=== PATIENT | male | born 1950 | race African-American/Black ===

== ENCOUNTER 2019-09-18 16:10 | Emergency (ER) | payer MEDICARE, OTHER ==
[~2019-09-18] VITALS: Ht 177.8 cm; Wt 88.0 kg
[2019-09-18 16:25] VITALS: BP 148/103
[2019-09-18] MEDS ORDERED: TRIA15OI TP (17:15)
--- NOTE | 2019-09-18 17:15 | PHYS DOC ---
Past History Past Medical History: Other Additional Past Medical Histor: CHRONIC PAIN, NEUROPATHY Past Surgical History: Other Additional Past Surgical Histo: RIGHT ABOVE THE KNEE AMPUTATION, LEFT BELOW THE ELBOW AMPUTATION Alcohol Use: None General Adult EDM: Chief Complaint: SKIN PROBLEM HPI: HPI: 69-year-old male presents with rash on the right upper arm and a small area on the lower arm. He has been working outside but he was wearing long sleeves. He is not sure how he came in contact with plant. It is somewhat itchy but not terrible. It is very vesicular. He has no other complaints at this time. He is on lots of chronic pain medication. Review of Systems: Review of Systems: Constitutional: Denies fever or chills Eyes: Denies change in visual acuity HENT: Denies nasal congestion or sore throat Respiratory: Denies cough or shortness of breath Cardiovascular: Denies chest pain or edema GI: Denies abdominal pain, nausea, vomiting, bloody stools or diarrhea : Denies dysuria Musculoskeletal: Denies back pain or joint pain Integument: Rash Neurologic: Denies headache, focal weakness or sensory changes Endocrine: Denies polyuria or polydipsia Lymphatic: Denies swollen glands Psychiatric: Denies depression or anxiety Heart Score: Risk Factors: Risk Factors: DM, Current or recent (<one month) smoker, HTN, HLP, family history of CAD, obesity. Risk Scores: Score 0 - 3: 2.5% MACE over next 6 weeks - Discharge Home Score 4 - 6: 20.3% MACE over next 6 weeks - Admit for Clinical Observation Score 7 - 10: 72.7% MACE over next 6 weeks - Early Invasive Strategies Allergies: Allergies: Allergies Coded Allergies Type Severity Reaction Last Updated Verified No Known Drug Allergies 09/18/19 No Physical Exam: PE: Constitutional: Well developed, well nourished, no acute distress, non-toxic appearance. [] HENT: Normocephalic, atraumatic, bilateral external ears normal, oropharynx moist, no oral exudates, nose normal. [] Eyes: PERRLA, EOMI, conjunctiva normal, no discharge. [] Neck: Normal range of motion, no tenderness, supple, no stridor. [] Cardiovascular:Heart rate regular rhythm, no murmur [] Lungs & Thorax: Bilateral breath sounds clear to auscultation [] Abdomen: Bowel sounds normal, soft, no tenderness, no masses, no pulsatile masses. [] Skin: Vesicular rash on the right upper arm consistent with rhus dermatitis [] Back: No tenderness, no CVA tenderness. [] Extremities: Left prosthetic arm [] Neurologic: Alert and oriented X 3, normal motor function, normal sensory function, no focal deficits noted. [] Psychologic: Affect normal, judgement normal, mood normal. [] Current Patient Data: Vital Signs: Vital Signs Date Time Temp Pulse Resp B/P (MAP) Pulse Ox O2 Delivery O2 Flow Rate FiO2 09/18/19 16:25 99.4 88 20 148/103 (118) 97 Room Air EKG: EKG: [] Radiology/Procedures: Radiology/Procedures: [] Course & Med Decision Making: Course & Med Decision Making Pertinent Labs and Imaging studies reviewed. (See chart for details) [] Dragon Disclaimer: Dragon Disclaimer: This electronic medical record was generated, in whole or in part, using a voice recognition dictation system. Departure Departure: Impression: Primary Impression: Poison tiffanie dermatitis Disposition: 01 HOME/RESIDENCE PRIOR TO ADM Condition: STABLE Referrals: RADHA MALONE DO (PCP) Patient Instructions: Poison Tiffanie, [id number] Scripts Triamcinolone Acetonide (TRIAMCINOLONE ACETONIDE 0.1% OINT) 15 Gm Oint...g. 1 LUIS ALBERTO TP BID for poison tiffanie for 7 Days, #1 TUBE Prov: HATTIE PALACIO DO 09/18/19 Justification of Admission: Justification of Admission: Justification of Admission Dx: N/A HATTIE PALACIO DO Sep 18, 2019 17:15
== END 2019-09-18 17:20 | disposition home or self-care (01) ==
LOC: ER 16:10
DX: L23.7 Allergic contact dermatitis due to plants, except food (principal); G89.29 Other chronic pain; Z89.611 Acquired absence of right leg above knee
CPT/HCPCS: 99283